=== PATIENT | female | born 1990 | race Caucasian/White ===

== ENCOUNTER → 2016-04-13 | Outpatient (CLI) | payer BC, OTHER ==
[~2016-04-13] VITALS: Ht 162.6 cm; Wt 81.8 kg
[~2016-04-13] MED LIST: BIRTH CONTROL PILLS; MACROBID 1100 MG/CAP PO; MIRALAX PA17 GM/Dose PO; MOTRIN 800800 MG/TAB PO; NORCO 325 MG-51 TAB PO; PERCOCET 325 MG1 TA2 PO; PRENATAL1 TA7 PO
[2016-04-13 21:40] VITALS: BP 131/79; PULSE 96; TEMP 99.1
[2016-04-13 22:00] VITALS: BP 126/79; PULSE 104
[2016-04-13 22:30] VITALS: BP 118/79; PULSE 105
[2016-04-13 22:56] LABS: PH 7 (5-8); SQUAMOUS EPITHELIAL 0-2 /hpf; URINE APPEARANCE Clear; URINE BACTERIA Rare /hpf; URINE BILIRUBIN Negative (NEGATIVE); URINE BLOOD Negative (NEGATIVE); URINE COLOR Straw; URINE GLUCOSE Negative (NEGATIVE); URINE KETONE Negative (NEGATIVE); URINE UROBILINOGEN Negative (NEGATIVE)
[2016-04-13 22:57] LABS: URINE RBC 0-2 /hpf
== END ==
LOC: LDRO 21:22
PROVIDERS: Obstetrics & Gynecology
DX: O47.02 False labor before 37 completed weeks of gestation, second trimester (principal); Z3A.25 25 weeks gestation of pregnancy

== ENCOUNTER 2016-06-08 19:19 | Outpatient (CLI) | payer BC, OTHER ==
[~2016-06-08] VITALS: Ht 162.6 cm; Wt 82.7 kg
[~2016-06-08 19:19] MED LIST changes: -MACROBID 1100 MG/CAP PO; -MOTRIN 800800 MG/TAB PO; -PERCOCET 325 MG1 TA2 PO
[2016-06-08 19:22] VITALS: BP 135/88; PULSE 120; TEMP 98.6
[2016-06-08 19:45] VITALS: BP 135/88; PULSE 120; TEMP 98.6
[2016-06-08 19:50] LABS: BASO % 0.3 % (0.0-2.0); EOS # 0.1 (0.0-0.7); EOS % 0.8 % (0-4.0); GRAN # 8.3 (1.4-6.5); GRAN % 69.9 % (42.2-75.2); LYMPH # 2.6 (1.2-3.4); LYMPH % 21.5 % (20.0-51.0); MEAN CELL VOLUME 85 fl (80.0-100.0); MEAN CORPUSCULAR HGB CONC 34 g/dl (33.0-37.0); MEAN PLATELET VOLUME 10.3 fl (7.4-10.4); MONO # 0.8 (0.1-0.6); MONO % 7.1 % (1.7-9.3); PLATELET COUNT 331 K/mm3 (130-400); RED BLOOD COUNT 3.91 M/mm3 (4.10-5.30); WHITE BLOOD COUNT 11.9 K/mm3 (4.8-10.8)
[2016-06-08 19:52] LABS: PH 5 (5-8); URINE APPEARANCE Hazy; URINE BACTERIA Rare /hpf; URINE BILIRUBIN Negative (NEGATIVE); URINE BLOOD Negative (NEGATIVE); URINE COLOR Yellow; URINE GLUCOSE 2+ (NEGATIVE); URINE KETONE Negative (NEGATIVE); URINE RBC 0-2 /hpf; URINE UROBILINOGEN Negative (NEGATIVE)
[2016-06-08 19:54] LABS: ADJUSTED CALCIUM 9.7 mg/dL (8.4-10.2); ALBUMIN 3.8 gm/dL (3.5-5.0); BILIRUBIN,TOTAL 0.6 mg/dL (0.0-1.0); CALCIUM 9.5 mg/dL (8.4-10.2); CREATININE, serum 0.55 mg/dL (0.52-1.25); HEMATOCRIT 33.3 % (37.0-47.0); HEMOGLOBIN 11.2 g/dl (12.5-16.0); MEAN CORPUSCULAR HEMOGLOBIN 29 pg (27.0-31.0); POTASSIUM 3.4 mmol/L (3.4-5.0); TOTAL PROTEIN 7.5 gm/dL (6.4-8.2)
[2016-06-08 20:00] VITALS: BP 130/75; PULSE 110
[2016-06-08 20:12] VITALS: BP 120/79; PULSE 113
[2016-06-08] MEDS ORDERED: MACROBID 1100 MG/CAP PO (20:18)
== END 2016-06-08 20:28 | disposition home or self-care (01) ==
LOC: LDRO 19:19
PROVIDERS: Obstetrics & Gynecology
DX: O26.893 Other specified pregnancy related conditions, third trimester (principal); R51 Headache; Z3A.33 33 weeks gestation of pregnancy

== ENCOUNTER 2016-06-14 18:21 | Emergency (ER) | payer BC, OTHER ==
[~2016-06-14] VITALS: Ht 162.6 cm; Wt 85.5 kg
[~2016-06-14 18:21] MED LIST changes: +MACROBID 1100 MG/CAP PO
[2016-06-14 18:23] VITALS: TEMP 98.4
[2016-06-14 20:04] VITALS: BP 121/90; PULSE 89
== END 2016-06-14 20:05 | disposition home or self-care (01) ==
LOC: COL.ER 18:21
DX: H10.9 Unspecified conjunctivitis (principal)

== ENCOUNTER 2016-07-04 07:01 | Inpatient (IN) | payer BC, OTHER ==
[~2016-07-04] VITALS: Ht 162.6 cm; Wt 87.7 kg
[2016-07-17] VITALS (61 sets, daily range): BP systolic 116–162; BP diastolic 65–97; PULSE 72–122; TEMP 97.9–100.3
[2016-07-17] MEDS ORDERED: PERCOCET 325 MG1 TA2 PO (07:23)
[2016-07-17] MEDS ORDERED: MOTRIN 800800 MG/TAB PO (07:23)
[2016-07-17 07:39] LABS: BASO % 0.3 % (0.0-2.0); EOS # 0.1 (0.0-0.7); EOS % 0.9 % (0-4.0); GRAN # 6.2 (1.4-6.5); LYMPH # 2.3 (1.2-3.4); LYMPH % 24.8 % (20.0-51.0); MEAN CELL VOLUME 82 fl (80.0-100.0); MEAN CORPUSCULAR HGB CONC 33 g/dl (33.0-37.0); MEAN PLATELET VOLUME 10.8 fl (7.4-10.4); MONO # 0.6 (0.1-0.6); MONO % 6.6 % (1.7-9.3); PLATELET COUNT 291 K/mm3 (130-400); RED BLOOD COUNT 4.17 M/mm3 (4.10-5.30); REDCELL DISTRIBUTION WIDTH-CV 13.3 % (11.5-14.5); WHITE BLOOD COUNT 9.3 K/mm3 (4.8-10.8)
[2016-07-17 07:48] LABS: HEMATOCRIT 34.2 % (37.0-47.0); HEMOGLOBIN 11.2 g/dl (12.5-16.0); MEAN CORPUSCULAR HEMOGLOBIN 27 pg (27.0-31.0)
[2016-07-18] VITALS (23 sets, daily range): BP systolic 106–147; BP diastolic 53–104; PULSE 78–133; TEMP 98.1–99.1
[2016-07-19 08:25] LABS: HEMOGLOBIN 8.7 g/dl (12.5-16.0)
[2016-07-19 08:54] VITALS: BP 116/75; PULSE 104
[2016-07-19 16:00] VITALS: BP 124/82; PULSE 106
[2016-07-19 20:45] VITALS: BP 119/77; PULSE 114; TEMP 98.1
[2016-07-20 07:00] VITALS: BP 139/82; PULSE 107
[2016-07-20 07:32] LABS: MEAN CELL VOLUME 84 fl (80.0-100.0); MEAN CORPUSCULAR HGB CONC 32 g/dl (33.0-37.0); MEAN PLATELET VOLUME 9.7 fl (7.4-10.4); PLATELET COUNT 273 K/mm3 (130-400); RED BLOOD COUNT 3.37 M/mm3 (4.10-5.30); REDCELL DISTRIBUTION WIDTH-CV 14.1 % (11.5-14.5); WHITE BLOOD COUNT 10.2 K/mm3 (4.8-10.8)
[2016-07-20 07:40] LABS: HEMATOCRIT 28.2 % (37.0-47.0); MEAN CORPUSCULAR HEMOGLOBIN 27 pg (27.0-31.0)
== END 2016-07-20 11:35 | disposition home or self-care (01) | DRG 766 ==
LOC: LDRO → EDSTATUS 07:01 → LDRO 11:02 → OB 07-17 06:47 → LDR 07-17 06:47 → OB 07-17 07:02
PROVIDERS: Obstetrics & Gynecology
PROC: 10D00Z1 Extraction of Products of Conception, Low, Open Approach (ICD-10-PCS; principal; 2016-07-17)
PROC: 3E033VJ Introduction of Other Hormone into Peripheral Vein, Percutaneous Approach (ICD-10-PCS; 2016-07-17)
DX: O32.0XX0 Maternal care for unstable lie, not applicable or unspecified (principal); O76 Abnormality in fetal heart rate and rhythm complicating labor and delivery; O62.0 Primary inadequate contractions; O99.02 Anemia complicating childbirth; D64.9 Anemia, unspecified; Z3A.39 39 weeks gestation of pregnancy; Z37.0 Single live birth
CPT/HCPCS: A9284; J0690; J1170; J1885; J2270; J2370; J2400; J2405; J2550; J2590; J2704; J7120

== ENCOUNTER 2016-07-05 21:49 | Outpatient (CLI) | payer BC, OTHER ==
[~2016-07-05] VITALS: Ht 162.6 cm; Wt 88.6 kg
[2016-07-05 22:20] VITALS: BP 140/86; PULSE 110
[2016-07-05 22:30] VITALS: BP 141/97; PULSE 103
[2016-07-05 22:35] LABS: BASO # 0.1 (0.0-0.2); BASO % 0.5 % (0.0-2.0); EOS # 0.1 (0.0-0.7); EOS % 0.7 % (0-4.0); GRAN # 7.7 (1.4-6.5); GRAN % 65.9 % (42.2-75.2); LYMPH % 25.8 % (20.0-51.0); MEAN CELL VOLUME 84 fl (80.0-100.0); MEAN CORPUSCULAR HGB CONC 33 g/dl (33.0-37.0); MEAN PLATELET VOLUME 10.6 fl (7.4-10.4); MONO # 0.8 (0.1-0.6); MONO % 6.6 % (1.7-9.3); PLATELET COUNT 308 K/mm3 (130-400); RED BLOOD COUNT 3.94 M/mm3 (4.10-5.30); WHITE BLOOD COUNT 11.7 K/mm3 (4.8-10.8)
[2016-07-05 22:44] LABS: HEMATOCRIT 33.2 % (37.0-47.0); HEMOGLOBIN 10.9 g/dl (12.5-16.0); MEAN CORPUSCULAR HEMOGLOBIN 28 pg (27.0-31.0)
[2016-07-05 22:46] VITALS: BP 136/84; PULSE 101; TEMP 98
[2016-07-05 22:46] LABS: ADJUSTED CALCIUM 9.6 mg/dL (8.4-10.2); ALBUMIN 3.8 gm/dL (3.5-5.0); BILIRUBIN,TOTAL 0.6 mg/dL (0.0-1.0); CALCIUM 9.4 mg/dL (8.4-10.2); CREATININE, serum 0.61 mg/dL (0.52-1.25); POTASSIUM 4.2 mmol/L (3.4-5.0); TOTAL PROTEIN 7.3 gm/dL (6.4-8.2)
[2016-07-05 23:00] VITALS: BP 123/77; PULSE 90
[2016-07-05 23:07] LABS: PH 6 (5-8); SQUAMOUS EPITHELIAL 0-2 /hpf; URINE APPEARANCE Clear; URINE BACTERIA None Seen /hpf; URINE BILIRUBIN Negative (NEGATIVE); URINE BLOOD 1+ (NEGATIVE); URINE COLOR Straw; URINE GLUCOSE Negative (NEGATIVE); URINE KETONE Negative (NEGATIVE); URINE RBC 0-2 /hpf; URINE UROBILINOGEN Negative (NEGATIVE); URINE WBC 0-2 /hpf
[2016-07-05 23:10] VITALS: BP 119/77; PULSE 105
== END 2016-07-06 | disposition home health service (06) ==
LOC: LDRO 21:49
PROVIDERS: Obstetrics & Gynecology
DX: O26.893 Other specified pregnancy related conditions, third trimester (principal); R51 Headache; Z3A.37 37 weeks gestation of pregnancy

== ENCOUNTER → 2016-07-23 | Outpatient (CLI) | payer BC, OTHER ==
[~2016-07-23] MED LIST changes: +MOTRIN 800800 MG/TAB PO; +PERCOCET 325 MG1 TA2 PO
== END ==
LOC: LAC 13:22
DX: O92.13 Cracked nipple associated with lactation (principal)